=== PATIENT | female | born 1945 ===

== ENCOUNTER 2016-08-26 20:52 | Inpatient (IN) | payer MEDICARE, MEDICAID ==
[2016-08-26 21:01] VITALS: O2SAT 97
--- NOTE | 2016-08-26 21:34 | ED PDOC ---
HPI: Altered Mental Status Time Seen by Provider: 08/26/16 20:59 Chief Complaint (Nursing): Altered Mental Status Chief Complaint (Provider): Altered Mental Status/Dementia History Per: Patient, EMS, Family (daughter) History/Exam Limitations: Clinical Condition (dementia) Onset Of Symptoms: Cannot Confirm Onset (estimated to be approximately 5 days ago according to EMS) Current Symptoms Are (Timing): Still Present Description Of Symptoms: Not At Baseline (uncooperative and wandering, according to daughter) Severity: Moderate Associated Symptoms: Falling (s/p bruise to face and chin). denies: Fever, Vomiting, Diarrhea, Dyspnea, Other (nausea) Additional Complaint(s): Karissa Chen is a 71 year old female, accompanied to the ER by her daughter, with a past medical history of dementia, type II diabetes mellitus, and hypertension, who presents to the emergency department for the evaluation of altered mental status and dementia, that the patient has been experiencing for approximately 5 days according to the EMS. Patient presents to the emergency room with her daughter who states that she is uncooperative and wandering. Associated falling has recently been present, inclusive of superficial bruising to the patient's face and chin. Denies a fever, nausea, vomiting, diarrhea, or shortness of breath. Of note, HPI is limited due to patient's history of dementia. PMD: Billie Joy Past Medical History Reviewed: Historical Data, Nursing Documentation, Vital Signs Vital Signs: Last Vital Signs Temp 99.3 F 08/26/16 20:55 Pulse 92 H 08/26/16 20:55 Resp 18 08/26/16 20:55 BP 123/88 08/26/16 20:55 Pulse Ox 97 08/26/16 20:55 - Medical History PMH: Alzheimer's Disease, Dementia, Diabetes (type II), HTN Denies: Hepatitis, HIV, Kidney Stones, Chronic Kidney Disease, Seizures, Sexually Transmitted Disease - Surgical History Surgical History: No Surg Hx - Family History Family History: States: No Known Family Hx - Living Arrangements Living Arrangements: With Family (with daughter) - Social History Alcohol: None Drugs: Denies - Immunization History Hx Tetanus Toxoid Vaccination: No Hx Influenza Vaccination: No Hx Pneumococcal Vaccination: No - Home Medications Home Medications: Ambulatory Orders Medication Instructions Recorded Alendronate [Fosamax] 70 mg PO QWK@3530 #0 tab 09/24/15 Atorvastatin [Lipitor] 40 mg PO HS #0 tab 09/24/15 Carvedilol [Coreg] 12.5 mg PO BID #0 tab 09/24/15 Donepezil [Aricept] 5 mg PO DAILY #0 tab 09/24/15 Ergocalciferol [Drisdol 50,000 1 cap PO Q7D #0 cap 09/24/15 Intl Units Cap] Mirtazapine [Remeron] 7.5 mg PO HS #0 tab 09/24/15 QUEtiapine [SEROquel] 50 mg PO HS #0 tab 09/24/15 metFORMIN [glucOPHAGE] 500 mg PO DAILY #0 tab 09/24/15 - Allergies Allergies/Adverse Reactions: Allergies Allergy/AdvReac Type Severity Reaction Status Date / Time No Known Allergies Allergy Verified 08/27/16 03:00 Review of Systems Review Of Systems: ROS cannot be obtained secondary to pt's inabilty to answer questions. (ROS is limited due to patient's clinical condition of dementia) Constitutional: Negative for: Fever Respiratory: Negative for: Shortness of Breath Gastrointestinal: Negative for: Nausea, Vomiting, Diarrhea Musculoskeletal: Positive for: Other (chin pain s/p fall) Skin: Positive for: Bruising (to face s/p fall) Neurological: Positive for: Altered Mental Status (dementia) Physical Exam - Reviewed Nursing Documentation Reviewed: Yes Vital Signs Reviewed: Yes - Physical Exam Appears: Positive for: Non-toxic, No Acute Distress Head Exam: Positive for: NORMOCEPHALIC. Negative for: ATRAUMATIC (swelling and tenderness to submental region) Skin: Positive for: Normal Color, Warm, Dry Eye Exam: Positive for: Normal appearance, EOMI, PERRL, Other (L periorbital ecchymosis) Neck: Positive for: Normal, Painless ROM, Supple Cardiovascular/Chest: Positive for: Regular Rate, Rhythm. Negative for: Murmur Respiratory: Positive for: Normal Breath Sounds. Negative for: Respiratory Distress Gastrointestinal/Abdominal: Positive for: Normal Exam, Soft. Negative for: Tenderness Extremity: Positive for: Normal ROM. Negative for: Tenderness, Swelling Neurologic/Psych: Positive for: Alert, Other (appears internally preoccupied). Negative for: Oriented (only oriented to person) - Laboratory Results Result Diagrams: 08/26/16 21:28 08/26/16 21:28 - ECG O2 Sat by Pulse Oximetry: 97 (RA) Pulse Ox Interpretation: Normal Medical Decision Making Medical Decision Makin:59 Initial Impression: 71 year old female s/p fall and setting of known dementia. Initial Plan: * CT Cervical Spine w/o Contrast * CT Head w/o Contrast * CT Maxillofacial w/o Contrast * EKG * CBC * CMP * PT/PTT * Troponin I * Urinalysis * Accucheck * Crisis Evaluation 1210: Labs showed no clinically significant abnormalities. Patient was evaluated by crisis and will require psych admission for further treatment and stabilization of dementia with behavior disturbance. Condition is fair Patient is medically stable for psych admission. EXAM: CT Head Without Intravenous Contrast CLINICAL HISTORY: 71 years old, female; Injury or trauma; Fall; Initial encounter; Laceration; Consciousness not specified; Without residual foreign body; Face and head, generalized; Injury date: Today; Injury details: Alzheimer's. Dementia. Best exam; Additional info: Headache TECHNIQUE: Axial computed tomography images of the head/brain without intravenous contrast. This CT exam was performed using one or more of the following dose reduction techniques: automated exposure control, adjustment of the mA and/or kV according to patient size, and/or use of iterative reconstruction technique. Coronal and sagittal reformatted images were created and reviewed. COMPARISON: CT - HEAD W/O CONTRAST 09/17/2015 6:28:09 AM FINDINGS: Limitations: Motion artifact - mild. Brain: Kxus-[id number] atrophy. No definite intracranial hemorrhage. No mass. Multiple scattered foci of decreased attenuation within periventricular/subcortical white matter. No definite edema. Ventricles: No hydrocephalus. Bones/joints: No calvarial fracture. Vasculature: Mild atherosclerotic disease of intracranial arteries. Mastoid air cells: No mastoid effusion. IMPRESSION: 1. No definite intracranial hemorrhage. 2. Nonspecific white matter changes. 3. See facial bone CT report for additional details. 4. Incidental/non-acute findings are described above. EXAM: CT Cervical Spine Without Intravenous Contrast CLINICAL HISTORY: 71 years old, female; Injury or trauma; Fall; Initial encounter; Laceration; Without foreign body; Injury date: Today; Patient HX: Alzheimer's. Dementia. Best exam; Additional info: Neck injury TECHNIQUE: Axial computed tomography images of the cervical spine without intravenous contrast. This CT exam was performed using one or more of the following dose reduction techniques : automated exposure control, adjustment of the mA and/or kV according to patient size, and/ or use of iterative reconstruction technique. COMPARISON: No relevant prior studies available. FINDINGS: Vertebrae: No acute fracture. Mild facet osteoarthrosis. Discs/spinal canal/neural foramina: [id number] degenerative disc disease within lower cervical spine. No significant central canal stenosis. Mild neuroforaminal narrowing within lower cervical spine. Soft tissues: Unremarkable. Vasculature: Mild atherosclerotic disease of intracranial arteries. Thyroid: Several calcifications/calcified nodules within thyroid. Lung apices: RIGHT upper lobe calcified granuloma. Probable scarring. IMPRESSION: 1. No fracture. 2. Incidental/non-acute findings are described above. EXAM: CT Maxillofacial Without Intravenous Contrast CLINICAL HISTORY: 71 years old, female; Injury or trauma; Fall; Initial encounter; Laceration; Cheek bone and eyelid and head/scalp and forehead and nose and ocular (eye or eyeball) and orbit/ periorbital and maxilla and jaw; Loss of consciousness not known; Bilateral; Not specified; Without residual foreign body; Injury date: Today; Patient HX: Alzheimer's. Dementia. Best exam; Additional info: Facial trauma TECHNIQUE: Axial computed tomography images of the face without intravenous contrast. This CT exam was performed using one or more of the following dose reduction techniques: automated exposure control, adjustment of the mA and/or kV according to patient size, and/or use of iterative reconstruction technique. COMPARISON: CT - HEAD W/O CONTRAST 09/17/2015 6:28:09 AM FINDINGS: Bones/joints: No acute fracture. Soft tissues: Minimal facial soft tissue swelling. Probable few tiny calcifications about maxilla. Orbits: Unremarkable as visualized. Sinuses: Moderate mucosal thickening/fluid of LEFT maxillary sinus. IMPRESSION: 1. No fracture. 2. Sinus disease. 3. Incidental/non-acute findings are described above. 0113: CXR showed no acute disease. Scribe Attestation: Documented by Maximilian Luis, acting as a scribe for Efren Corey MD. Provider Scribe Attestation: All medical record entries made by the Scribe were at my direction and personally dictated by me. I have reviewed the chart and agree that the record accurately reflects my personal performance of the history, physical exam, medical decision making, and the department course for this patient. I have also personally directed, reviewed, and agree with the discharge instructions and disposition. Disposition - Clinical Impression Clinical Impression: Dementia without behavioral disturbance - Patient ED Disposition Is Patient to be Admitted: Yes - Disposition Disposition Time: 00:00 Condition: FAIR - Pt Status Changed To: Hospital Disposition Of: Inpatient - Admit Certification Admit to Inpatient:: After my assessment, the patient will require hospitalization for at least two midnights. This is because of the severity of symptoms shown, intensity of services needed, and/or the medical risk in this patient being treated as an outpatient.
[2016-08-26 22:09] LABS: BASO # 0.1 K/uL (0.0-0.2); BASO % 0.6 % (0.0-2.0); EOS % 0.1 % (0.0-4.0); HEMATOCRIT 45.3 % (34.0-47.0); LYMPH # 1.2 K/uL (1.0-4.3); MEAN CELL VOLUME 92.6 fl (81.0-99.0); MEAN CORPUSCULAR HEMOGLOBIN 30.7 pg (27.0-31.0); MEAN CORPUSCULAR HGB CONC 33.2 g/dL (33.0-37.0); MEAN PLATELET VOLUME 9.3 fl (7.2-11.7); MONO # 0.7 K/uL (0.0-0.8); MONO % 7.3 % (0.0-10.0); NEUT # 7.9 K/uL (1.8-7.0); RED CELL DISTRIBUTION WIDTH 13.4 % (11.5-14.5); WHITE BLOOD COUNT 9.8 K/uL (4.8-10.8)
[2016-08-26 22:35] LABS: ALB/GLOB RATIO 1.5 (1.0-2.1); ALKALINE PHOSPHATASE 85 U/L (38-126); ALT/SGPT 36 U/L (9-52); AST/SGOT 32 U/L (14-36); BLOOD UREA NITROGEN 21 mg/dl (7-17); CALCIUM 9.8 mg/dL (8.4-10.2); CARBON DIOXIDE 25 mmol/L (22-30); CHLORIDE 99 mmol/L (98-107); GFR AFRICAN-AMERICAN > 60; GLUCOSE,RANDOM 121 mg/dL (65-105); POTASSIUM 3.5 MMOL/L (3.6-5.0); SODIUM 139 mmol/l (132-148); TOTAL PROTEIN 8.3 G/DL (6.3-8.2)
[2016-08-26 22:48] LABS: PARTIAL THROMBOPLASTIN TIME 26.3 SECONDS (23.3-32.5)
--- NOTE | 2016-08-26 23:22 | CT ---
EXAM: CT Head Without Intravenous Contrast CLINICAL HISTORY: 71 years old, female; Injury or trauma; Fall; Initial encounter; Laceration; Consciousness not specified; Without residual foreign body; Face and head, generalized; Injury date: Today; Injury details: Alzheimer's. Dementia. Best exam; Additional info: Headache TECHNIQUE: Axial computed tomography images of the head/brain without intravenous contrast. This CT exam was performed using one or more of the following dose reduction techniques: automated exposure control, adjustment of the mA and/or kV according to patient size, and/or use of iterative reconstruction technique. Coronal and sagittal reformatted images were created and reviewed. COMPARISON: CT - HEAD W/O CONTRAST 09/17/2015 6:28:09 AM FINDINGS: Limitations: Motion artifact - mild. Brain: [id number]-[id number] atrophy. No definite intracranial hemorrhage. No mass. Multiple scattered foci of decreased attenuation within periventricular/subcortical white matter. No definite edema. Ventricles: No hydrocephalus. Bones/joints: No calvarial fracture. Vasculature: Mild atherosclerotic disease of intracranial arteries. Mastoid air cells: No mastoid effusion. IMPRESSION: 1. No definite intracranial hemorrhage. 2. Nonspecific white matter changes. 3. See facial bone CT report for additional details. 4. Incidental/non-acute findings are described above.
--- NOTE | 2016-08-26 23:27 | CT ---
EXAM: CT Maxillofacial Without Intravenous Contrast CLINICAL HISTORY: 71 years old, female; Injury or trauma; Fall; Initial encounter; Laceration; Cheek bone and eyelid and head/scalp and forehead and nose and ocular (eye or eyeball) and orbit/periorbital and maxilla and jaw; Loss of consciousness not known; Bilateral; Not specified; Without residual foreign body; Injury date: Today; Patient HX: Alzheimer's. Dementia. Best exam; Additional info: Facial trauma TECHNIQUE: Axial computed tomography images of the face without intravenous contrast. This CT exam was performed using one or more of the following dose reduction techniques: automated exposure control, adjustment of the mA and/or kV according to patient size, and/or use of iterative reconstruction technique. COMPARISON: CT - HEAD W/O CONTRAST 09/17/2015 6:28:09 AM FINDINGS: Bones/joints: No acute fracture. Soft tissues: Minimal facial soft tissue swelling. Probable few tiny calcifications about maxilla. Orbits: Unremarkable as visualized. Sinuses: Moderate mucosal thickening/fluid of LEFT maxillary sinus. IMPRESSION: 1. No fracture. 2. Sinus disease. 3. Incidental/non-acute findings are described above.
--- NOTE | 2016-08-26 23:30 | CT ---
EXAM: CT Cervical Spine Without Intravenous Contrast CLINICAL HISTORY: 71 years old, female; Injury or trauma; Fall; Initial encounter; Laceration; Without foreign body; Injury date: Today; Patient HX: Alzheimer's. Dementia. Best exam; Additional info: Neck injury TECHNIQUE: Axial computed tomography images of the cervical spine without intravenous contrast. This CT exam was performed using one or more of the following dose reduction techniques: automated exposure control, adjustment of the mA and/or kV according to patient size, and/or use of iterative reconstruction technique. COMPARISON: No relevant prior studies available. FINDINGS: Vertebrae: No acute fracture. Mild facet osteoarthrosis. Discs/spinal canal/neural foramina: [id number] degenerative disc disease within lower cervical spine. No significant central canal stenosis. Mild neuroforaminal narrowing within lower cervical spine. Soft tissues: Unremarkable. Vasculature: Mild atherosclerotic disease of intracranial arteries. Thyroid: Several calcifications/calcified nodules within thyroid. Lung apices: RIGHT upper lobe calcified granuloma. Probable scarring. IMPRESSION: 1. No fracture. 2. Incidental/non-acute findings are described above.
[2016-08-27] MEDS ORDERED: Bismuth Subsalicylate 262 mg/15 ml Sus (240 ml) PO PRN (01:25)
[2016-08-27] MEDS ORDERED: Alum-Mag Hydrox-Simethicone Susp (30 mL) PO PRN (01:25)
[2016-08-27] MEDS ORDERED: Magnesium Hydroxide Susp 30 ml UD PO PRN (01:25)
[2016-08-27] MEDS ORDERED: Ergocalciferol 50,000 Intl Units Cap PO SCH (05:45)
[2016-08-27] MEDS ORDERED: ALENDRONATE 70 MG TAB PO SCH (07:30)
[2016-08-27] MEDS: Insulin Lispro (humaLOG) 100 Units/ml Inj SC SCH ×5 (08:26→21:12)
--- NOTE | 2016-08-27 08:32 | RAD ---
HISTORY: admit COMPARISON: No prior. FINDINGS: LUNGS: Chronic interstitial changes. PLEURA: No significant pleural effusion identified, no pneumothorax apparent. CARDIOVASCULAR: Normal. OSSEOUS STRUCTURES: No significant abnormalities. VISUALIZED UPPER ABDOMEN: Normal. OTHER FINDINGS: None. IMPRESSION: Chronic interstitial changes.
[2016-08-27 09:14] LABS: IRON 71 ug/dL (37-170)
[2016-08-27 10:48] LABS: BLOOD UREA NITROGEN 22 mg/dl (7-17); CALCIUM 9.9 mg/dL (8.4-10.2); CARBON DIOXIDE 19 mmol/L (22-30); CHLORIDE 105 mmol/L (98-107); CHOLESTEROL 170 mg/dL (0-199); GFR AFRICAN-AMERICAN > 60; GLUCOSE,RANDOM 141 mg/dL (65-105); POTASSIUM 3.7 MMOL/L (3.6-5.0); SODIUM 139 mmol/l (132-148)
[2016-08-27 12:16] LABS: T4 11.1 ug/dl (5.5-11.0)
[2016-08-27 12:30] LABS: THYROID STIMULATING HORMONE 0.94 mIU/ML (0.46-4.68)
--- NOTE | 2016-08-27 15:41 | CP.PCM.HP ---
History of Present Illness - History of Present Illness History of Present Illness: History from the Chart and the Patient: CC: SIOBHAN Hitory of Present Illness: A 71 year old female, accompanied to the ER by her daughter, with a past medical history of dementia, type II diabetes mellitus, and hypertension, who presents to the emergency department for the evaluation of altered mental status and dementia, that the patient has been experiencing for approximately 5 days according to the EMS. Patient presents to the emergency room with her daughter who states that she is uncooperative and wandering. Associated falling has recently been present, inclusive of superficial bruising to the patient's face and chin. Denies a fever, nausea, vomiting, diarrhea, or shortness of breath. Of note, HPI is limited due to patient's history of dementia. Present on Admission - Present on Admission Any Indicators Present on Admission: No History of DVT/PE: No History of Uncontrolled Diabetes: Yes Urinary Catheter: No Decubitus Ulcer Present: No Review of Systems - Review of Systems All systems: reviewed and no additional remarkable complaints except - Psychiatric Psychiatric: As Per HPI Past Patient History - Infectious Disease Hx of Infectious Diseases: None - Tetanus Immunizations Tetanus Immunization: Unknown - Past Social History Smoking Status: Never Smoked Alcohol: None Drugs: Denies - CARDIAC Hx Hypertension: Yes - PULMONARY Hx Respiratory Disorders: Yes - NEUROLOGICAL Hx Alzheimer's Disease: Yes Hx Dementia: Yes Hx Seizures: No - HEENT Hx HEENT Problems: No - RENAL Hx Chronic Kidney Disease: No Hx Kidney Stones: No - ENDOCRINE/METABOLIC Hx Endocrine Disorders: Yes - HEMATOLOGICAL/ONCOLOGICAL Hx Human Immunodeficiency Virus (HIV): No - INTEGUMENTARY Hx Dermatological Problems: No - MUSCULOSKELETAL/RHEUMATOLOGICAL Hx Musculoskeletal Disorders: Yes - GASTROINTESTINAL Hx Gastrointestinal Disorders: No - GENITOURINARY/GYNECOLOGICAL Hx Sexually Transmitted Disorders: No - PSYCHIATRIC Hx Psychophysiologic Disorder: Yes - SURGICAL HISTORY Hx Surgeries: No Other/Comment: History obtained as per information from chart, patient unable to answer any questions appropriately at this time due to memory loss & sedated at the time of admission to the unit - ANESTHESIA Hx Anesthesia: Yes Hx Anesthesia Reactions: No Hx Malignant Hyperthermia: No Meds Allergies/Adverse Reactions: Allergies Allergy/AdvReac Type Severity Reaction Status Date / Time No Known Allergies Allergy Verified 08/27/16 03:00 Physical Exam - Constitutional Appears: Well, No Acute Distress - Head Exam Head Exam: ATRAUMATIC, NORMAL INSPECTION, NORMOCEPHALIC - Eye Exam Eye Exam: EOMI, Normal appearance, PERRL Pupil Exam: NORMAL ACCOMODATION, PERRL - ENT Exam ENT Exam: Mucous Membranes Dry, Normal Exam - Neck Exam Neck exam: Positive for: Full Rom, Normal Inspection - Respiratory Exam Respiratory Exam: Clear to Auscultation Bilateral, NORMAL BREATHING PATTERN - Cardiovascular Exam Cardiovascular Exam: REGULAR RHYTHM, +S1, +S2 - GI/Abdominal Exam GI & Abdominal Exam: Normal Bowel Sounds, Soft. absent: Tenderness - Extremities Exam Extremities exam: Positive for: full ROM, normal capillary refill, normal inspection. Negative for: calf tenderness - Back Exam Back exam: NORMAL INSPECTION. absent: CVA tenderness (L), CVA tenderness (R) - Neurological Exam Neurological exam: Alert, CN II-XII Intact, Reflexes Normal - Psychiatric Exam Psychiatric exam: Normal Affect, Normal Mood - Skin Skin Exam: Dry, Intact, Normal Color, Warm Results - Vital Signs Recent Vital Signs: Last Vital Signs Temp 97.6 F 08/27/16 06:00 Pulse 73 08/27/16 08:23 Resp 19 08/27/16 06:00 BP 138/77 08/27/16 08:23 Pulse Ox 97 08/27/16 06:39 - Labs Result Diagrams: 08/26/16 21:28 08/27/16 09:15 Labs: Laboratory Results - last 24 hr 08/27/16 08/27/16 08/27/16 05:55 08:00 08:00 Sodium Potassium Chloride Carbon Dioxide Anion Gap BUN Creatinine Est GFR ( Amer) Est GFR (Non-Af Amer) POC Glucose (mg/dL) 147 H Random Glucose Calcium Iron 71 TIBC 263 % Saturation 27 Ferritin Triglycerides Cholesterol LDL Cholesterol Direct HDL Cholesterol Vitamin B12 Free T4 2.24 H Thyroxine (T4) TSH 3rd Generation 08/27/16 08/27/16 08/27/16 09:15 11:14 15:21 Sodium 139 Potassium 3.7 Chloride 105 Carbon Dioxide 19 L Anion Gap 19 BUN 22 H Creatinine 0.7 Est GFR ( Amer) > 60 Est GFR (Non-Af Amer) > 60 POC Glucose (mg/dL) 117 H 156 H Random Glucose 141 H Calcium 9.9 Iron TIBC % Saturation Ferritin 235.0 Triglycerides 74 D Cholesterol 170 LDL Cholesterol Direct 64 HDL Cholesterol 62 Vitamin B12 717 Free T4 Thyroxine (T4) 11.1 H TSH 3rd Generation 0.94 - Imaging and Cardiology CT scan - head Status: Report reviewed by me Additional comment: No Acute finding CT C-spine: Status: Report reviewed by me Additional comment: No Fracture Maxillo facial CT: Status: Report reviewed by me Additional comment: IMPRESSION: 1. No fracture. 2. Sinus disease. 3. Incidental/non-acute findings are described above. Chest x-ray Status: Report reviewed by me Additional comment: Chronic Interstitial Changes Assessment & Plan (1) Hyperthyroidism, subclinical Assessment and Plan: Repeat Thyroid Panel in 3 days Status: Acute Priority: Low (2) Dementia with psychosis Status: Acute (3) HTN (hypertension) Assessment and Plan: Continue Carvidelol Status: Chronic (4) DM2 (diabetes mellitus, type 2) Assessment and Plan: Metformin Accucheck with Coverage Status: Chronic
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
[2016-08-27 18:51] LABS: FOLATE 13.6 ng/mL
[2016-08-28 06:47] LABS: RBC URINE 5 /hpf (0-3); URINE BILIRUBIN NEGATIVE (NEGATIVE); URINE BLOOD NEGATIVE (NEGATIVE); URINE COLOR YELLOW (YELLOW); URINE GLUCOSE (UA) NEG (Normal); URINE KETONE NEGATIVE (NEGATIVE); URINE LEUKOCYTE ESTERASE NEG Leu/uL (Negative); URINE PROTEIN NEGATIVE (NEGATIVE); WBC URINE 2 /hpf (0-5)
[2016-08-28] MEDS: Insulin Lispro (humaLOG) 100 Units/ml Inj SC SCH ×4 (08:06→16:19)
--- NOTE | 2016-08-28 08:50 | CARD ---
APPROVED REPORT EKG Measurement Heart [id number] <Conclusion> Normal sinus rhythm Possible inferior infarct, age undetermined Abnormal ECG
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
--- NOTE | 2016-08-28 21:22 | CP.PCM.PN ---
Subjective - Date & Time of Evaluation Date of Evaluation: 08/28/16 Time of Evaluation: 17:45 - Subjective Subjective: Sates feeling better. The facial bruise is improving Objective - Vital Signs/Intake and Output Vital Signs (last 24 hours): Temp Pulse Resp BP Pulse Ox 97.1 F L 68 19 128/75 97 08/28/16 16:56 08/28/16 16:56 08/28/16 16:56 08/28/16 16:56 08/27/16 06:39 - Medications Medications: Current Medications Acetaminophen (Tylenol 325mg Tab) 650 mg PO Q4 PRN PRN Reason: Pain, moderate (4-7) Al Hydrox/Mg Hydrox/Simethicone (Maalox Plus 30 Ml) 30 ml PO Q4 PRN PRN Reason: Dyspepsia Alendronate Sodium (Fosamax) 70 mg PO QWK@0730 [facility] Last Admin: 08/27/16 08:25 Dose: 70 mg Atorvastatin Calcium (Lipitor) 40 mg PO HS [facility] Last Admin: 08/28/16 21:02 Dose: 40 mg Bismuth Subsalicylate (Pepto-Bismol) 524 mg PO Q4 PRN PRN Reason: Diarrhea Carvedilol (Coreg) 12.5 mg PO BID [facility] Last Admin: 08/28/16 16:27 Dose: 12.5 mg Donepezil HCl (Aricept) 5 mg PO DAILY [facility] Last Admin: 08/28/16 13:09 Dose: 5 mg Ergocalciferol (Drisdol 50,000 Intl Units Cap) 1 cap PO Q7D [facility] Last Admin: 08/27/16 08:24 Dose: 1 cap Insulin Human Lispro (Humalog) 0 units SC ACHS [facility] PRN Reason: Protocol Last Admin: 08/28/16 16:19 Dose: Not Given Lorazepam (Ativan) 0.5 mg PO HS PRN PRN Reason: Insomnia Stop: 09/10/16 01:26 Lorazepam (Ativan) 0.5 mg PO Q6 PRN PRN Reason: Anixety/Agitation Stop: 09/10/16 01:26 Last Admin: 08/27/16 09:34 Dose: 0.5 mg Magnesium Hydroxide (Milk Of Magnesia) 30 ml PO HS PRN PRN Reason: Constipation Metformin HCl (Glucophage) 500 mg PO DAILY [facility] Last Admin: 08/28/16 08:59 Dose: 500 mg Mirtazapine (Remeron) 7.5 mg PO [facility] Last Admin: 08/28/16 21:02 Dose: 7.5 mg Quetiapine Fumarate (Seroquel) 50 mg PO [facility] Last Admin: 08/28/16 21:02 Dose: 50 mg - Labs Labs: 08/27/16 09:15 PT 10.7 SECONDS (9.6-11.2) 08/26/16 21:28 INR 1.03 (0.92-1.08) 08/26/16 21:28 APTT 26.3 SECONDS (23.3-32.5) 08/26/16 21:28 - Constitutional Appears: Well, No Acute Distress - Head Exam Head Exam: NORMOCEPHALIC Additional comments: Bruises to the Chin Area - Eye Exam Eye Exam: EOMI, Normal appearance, PERRL Pupil Exam: NORMAL ACCOMODATION, PERRL - ENT Exam ENT Exam: Mucous Membranes Moist, Normal Exam - Neck Exam Neck Exam: Full ROM, Normal Inspection. absent: Lymphadenopathy - Respiratory Exam Respiratory Exam: Clear to Ausculation Bilateral, NORMAL BREATHING PATTERN - Cardiovascular Exam Cardiovascular Exam: REGULAR RHYTHM, +S1, +S2. absent: Murmur - GI/Abdominal Exam GI & Abdominal Exam: Soft, Normal Bowel Sounds. absent: Tenderness - Extremities Exam Extremities Exam: Full ROM, Normal Capillary Refill, Normal Inspection. absent : Joint Swelling, Pedal Edema - Back Exam Back Exam: Full ROM, NORMAL INSPECTION. absent: CVA tenderness (L), CVA tenderness (R) - Neurological Exam Neurological Exam: Abnormal Gait, Altered, Awake, CN II-XII Intact - Psychiatric Exam Psychiatric exam: Agitated - Skin Skin Exam: Dry, Intact, Normal Color, Warm Assessment and Plan (1) Dementia with psychosis Assessment & Plan: Treat as per Psych Recommendations TSH/Vitamin B12/RPR Status: Acute (2) HTN (hypertension) Assessment & Plan: Normotensve without medicine Low salt Diet Status: Chronic (3) DM2 (diabetes mellitus, type 2) Assessment & Plan: Continue Metformin Status: Chronic (4) Hyperthyroidism, subclinical Assessment & Plan: Repeat Thyroid Panel Status: Acute
[2016-08-29 08:33] LABS: THYROID STIMULATING HORMONE 0.86 mIU/ML (0.46-4.68)
[2016-08-29] MEDS: Insulin Lispro (humaLOG) 100 Units/ml Inj SC SCH ×3 (08:45→17:01)
--- NOTE | 2016-08-29 09:58 | PCM.PYCHPN ---
Psychiatric Progress Note - Psychiatric Progress Note Patient seen today, length of contact: Patient evaluated, case discussed with team, chart reviewed Patient Chief Complaint: "I'm good" Problems Identified/Issues Discussed: Patient is calm/pleasant/no behavioral problems on the unit. A + O x 1, which seems to be her baseline due to her dementia. [employer] and SW still awaiting a return phone call from the patient's daughter. Patient is a poor historian and unable to provide any history. She denies current mood symptoms or psychotic symptoms. Medication Change: No Medical Record Reviewed: Yes Mental Status Examination - Cognitive Function Orientation: Person Memory: Impaired Attention: Poor Concentration: Poor Association: Loose Fund of Knowledge: Poor Decription of patient's judgement and insights: Poor I/J due to dementia - Mood Mood: Neutral - Affect Affect: Broad - Speech Speech: Soft - Formal Thought Process Formal Thought Process: Loosening of associations Psychotic Thoughts and Behaviors: No AH/VH/paranoia/delusions - Suicidal Ideation Suicidal Ideation: No - Homicidal Ideation Homicidal Ideation: No Goal/Treatment Plan - Goal/Treatment Plan Need for Continued Stay: Remain at risks for inpatient hospitalization, Discharge may exacerbated symptoms, Severe functional impairment Progress Toward Problem(s) and Goals/Treatment Plan: 71 yo female w/ dementia w/ behavioral disturbances, currently calm on the unit , but needs continued monitoring for treatment and safety. -SW to call APS -Medicine consult -Individual and group therapy -Obtain collateral history; daughter has not returned phone calls from staff and MD -Continue Seroquel 50 mg PO HS, Remeron 7.5 mg PO HS -Disposition planning - Smoking Cessation Smoking Cessation Initiated: No Reason for not providing: Not indicated
[2016-08-29 17:08] LABS: FT3 3.51 pg/mL (2.77-5.27)
[2016-08-29] MEDS: Nystatin Ointment TOP SCH (21:13)
[2016-08-30] MEDS: Insulin Lispro (humaLOG) 100 Units/ml Inj SC SCH ×4 (08:20→21:14)
[2016-08-30] MEDS: Nystatin Ointment TOP SCH ×2 (08:23→16:30)
--- NOTE | 2016-08-30 09:31 | PCM.PYCHPN ---
Psychiatric Progress Note - Psychiatric Progress Note Patient seen today, length of contact: Patient evaluated, case discussed with team, chart reviewed Patient Chief Complaint: "I'm good" Problems Identified/Issues Discussed: Patient is calm/pleasant/no behavioral problems on the unit. A + O x 1, which seems to be her baseline due to her dementia. She denies current mood symptoms or psychotic symptoms. Medication Change: No Medical Record Reviewed: Yes Mental Status Examination - Cognitive Function Orientation: Person Memory: Impaired Attention: Poor Concentration: Poor Association: Loose Fund of Knowledge: Poor Decription of patient's judgement and insights: Poor I/J due to dementia - Mood Mood: Neutral - Affect Affect: Broad - Speech Speech: Soft - Formal Thought Process Formal Thought Process: Loosening of associations Psychotic Thoughts and Behaviors: No AH/VH/paranoia/delusions - Suicidal Ideation Suicidal Ideation: No - Homicidal Ideation Homicidal Ideation: No Goal/Treatment Plan - Goal/Treatment Plan Progress Toward Problem(s) and Goals/Treatment Plan: 71 yo female w/ dementia w/ behavioral disturbances, currently calm and psychiatrically stable for referral to subacute rehab for continued physical therapy. -SW was able to finally get in touch with the patient's daughter (daughter did not return calls for several days) and confirm her living situation and status -Patient to be referred for subacute rehab. -Individual and group therapy -Continue Seroquel 50 mg PO HS, Remeron 7.5 mg PO HS -Disposition planning Estimated Date of D/C: 08/31/16 - Smoking Cessation Smoking Cessation Initiated: No Reason for not providing: Not indicated
--- NOTE | 2016-08-30 11:00 | CP.PCM.PN ---
Subjective - Date & Time of Evaluation Date of Evaluation: 08/29/16 Time of Evaluation: 19:25 Objective - Vital Signs/Intake and Output Vital Signs (last 24 hours): Temp Pulse Resp BP Pulse Ox 97 F L 66 19 159/86 H 97 08/30/16 05:57 08/30/16 08:23 08/30/16 05:57 08/30/16 08:23 08/27/16 06:39 - Medications Medications: Current Medications Acetaminophen (Tylenol 325mg Tab) 650 mg PO Q4 PRN PRN Reason: Pain, moderate (4-7) Last Admin: 08/29/16 15:25 Dose: 650 mg Al Hydrox/Mg Hydrox/Simethicone (Maalox Plus 30 Ml) 30 ml PO Q4 PRN PRN Reason: Dyspepsia Alendronate Sodium (Fosamax) 70 mg PO QWK@0730 [facility] Last Admin: 08/27/16 08:25 Dose: 70 mg Amlodipine Besylate (Norvasc) 5 mg PO DAILY [facility] Last Admin: 08/30/16 08:23 Dose: 5 mg Atorvastatin Calcium (Lipitor) 40 mg PO HS [facility] Last Admin: 08/29/16 20:59 Dose: 40 mg Bismuth Subsalicylate (Pepto-Bismol) 524 mg PO Q4 PRN PRN Reason: Diarrhea Carvedilol (Coreg) 12.5 mg PO BID [facility] Last Admin: 08/30/16 08:19 Dose: 12.5 mg Donepezil HCl (Aricept) 5 mg PO DAILY [facility] Last Admin: 08/30/16 08:18 Dose: 5 mg Ergocalciferol (Drisdol 50,000 Intl Units Cap) 1 cap PO Q7D [facility] Last Admin: 08/27/16 08:24 Dose: 1 cap Insulin Human Lispro (Humalog) 0 units SC ACHS [facility] PRN Reason: Protocol Last Admin: 08/30/16 08:20 Dose: Not Given Lorazepam (Ativan) 0.5 mg PO HS PRN PRN Reason: Insomnia Stop: 09/10/16 01:26 Lorazepam (Ativan) 0.5 mg PO Q6 PRN PRN Reason: Anixety/Agitation Stop: 09/10/16 01:26 Last Admin: 08/29/16 17:03 Dose: 0.5 mg Magnesium Hydroxide (Milk Of Magnesia) 30 ml PO HS PRN PRN Reason: Constipation Metformin HCl (Glucophage) 500 mg PO DAILY [facility] Last Admin: 08/30/16 08:19 Dose: 500 mg Mirtazapine (Remeron) 7.5 mg PO HS [facility] Last Admin: 08/29/16 20:59 Dose: 7.5 mg Nystatin (Mycostatin Oint) 1 applic TOP BID [facility] Last Admin: 08/30/16 08:23 Dose: 1 applic Quetiapine Fumarate (Seroquel) 50 mg PO HS [facility] Last Admin: 08/29/16 20:59 Dose: 50 mg Triamcinolone Acetonide (Kenalog 0.1% Oint) 1 appl TOP DAILY [facility] Last Admin: 08/30/16 08:21 Dose: 1 appl - Labs Labs: 08/27/16 09:15 PT 10.7 SECONDS (9.6-11.2) 08/26/16 21:28 INR 1.03 (0.92-1.08) 08/26/16 21:28 APTT 26.3 SECONDS (23.3-32.5) 08/26/16 21:28 Assessment and Plan (1) Dementia with psychosis Status: Acute (2) HTN (hypertension) Status: Chronic (3) DM2 (diabetes mellitus, type 2) Status: Chronic (4) Hyperthyroidism, subclinical Status: Acute
[2016-08-30 16:07] VITALS: RESP 20
--- NOTE | 2016-08-30 23:10 | CP.PCM.PN ---
Subjective - Date & Time of Evaluation Date of Evaluation: 08/30/16 Time of Evaluation: 09:35 Objective - Vital Signs/Intake and Output Vital Signs (last 24 hours): Temp Pulse Resp BP Pulse Ox 97.8 F 73 20 130/75 97 08/30/16 16:06 08/30/16 16:28 08/30/16 16:06 08/30/16 16:28 08/27/16 06:39 - Medications Medications: Current Medications Acetaminophen (Tylenol 325mg Tab) 650 mg PO Q4 PRN PRN Reason: Pain, moderate (4-7) Last Admin: 08/30/16 22:55 Dose: 650 mg Al Hydrox/Mg Hydrox/Simethicone (Maalox Plus 30 Ml) 30 ml PO Q4 PRN PRN Reason: Dyspepsia Alendronate Sodium (Fosamax) 70 mg PO QWK@0730 [facility] Last Admin: 08/27/16 08:25 Dose: 70 mg Amlodipine Besylate (Norvasc) 5 mg PO DAILY [facility] Last Admin: 08/30/16 08:23 Dose: 5 mg Atorvastatin Calcium (Lipitor) 40 mg PO HS [facility] Last Admin: 08/30/16 21:16 Dose: 40 mg Bismuth Subsalicylate (Pepto-Bismol) 524 mg PO Q4 PRN PRN Reason: Diarrhea Carvedilol (Coreg) 12.5 mg PO BID [facility] Last Admin: 08/30/16 16:28 Dose: 12.5 mg Donepezil HCl (Aricept) 5 mg PO DAILY [facility] Last Admin: 08/30/16 08:18 Dose: 5 mg Ergocalciferol (Drisdol 50,000 Intl Units Cap) 1 cap PO Q7D [facility] Last Admin: 08/27/16 08:24 Dose: 1 cap Insulin Human Lispro (Humalog) 0 units SC ACHS [facility] PRN Reason: Protocol Last Admin: 08/30/16 21:14 Dose: Not Given Lorazepam (Ativan) 0.5 mg PO HS PRN PRN Reason: Insomnia Stop: 09/10/16 01:26 Lorazepam (Ativan) 0.5 mg PO Q6 PRN PRN Reason: Anixety/Agitation Stop: 09/10/16 01:26 Last Admin: 08/29/16 17:03 Dose: 0.5 mg Magnesium Hydroxide (Milk Of Magnesia) 30 ml PO HS PRN PRN Reason: Constipation Metformin HCl (Glucophage) 500 mg PO DAILY [facility] Last Admin: 08/30/16 08:19 Dose: 500 mg Mirtazapine (Remeron) 7.5 mg PO HS [facility] Last Admin: 08/30/16 21:15 Dose: 7.5 mg Nystatin (Mycostatin Oint) 1 applic TOP BID [facility] Last Admin: 08/30/16 16:30 Dose: 1 applic Quetiapine Fumarate (Seroquel) 50 mg PO HS [facility] Last Admin: 08/30/16 21:16 Dose: 50 mg Triamcinolone Acetonide (Kenalog 0.1% Oint) 1 appl TOP DAILY [facility] Last Admin: 08/30/16 08:21 Dose: 1 appl - Labs Labs: 08/27/16 09:15 PT 10.7 SECONDS (9.6-11.2) 08/26/16 21:28 INR 1.03 (0.92-1.08) 08/26/16 21:28 APTT 26.3 SECONDS (23.3-32.5) 08/26/16 21:28 Assessment and Plan (1) Dementia with psychosis Status: Acute (2) HTN (hypertension) Status: Chronic (3) DM2 (diabetes mellitus, type 2) Status: Chronic (4) Hyperthyroidism, subclinical Status: Acute
[2016-08-31] MEDS: Insulin Lispro (humaLOG) 100 Units/ml Inj SC SCH ×4 (06:30→22:01)
[2016-08-31] MEDS ORDERED: Insulin Lispro (humaLOG) 100 Units/ml Inj SC ONE (07:00)
[2016-08-31] MEDS ORDERED: ALENDRONATE 70 MG TAB PO ONE (09:00)
[2016-08-31] MEDS: Nystatin Ointment TOP SCH ×2 (09:00→17:00)
[2016-08-31] MEDS ORDERED: Nystatin Ointment TOP ONE (09:00)
[2016-08-31] MEDS ORDERED: Ergocalciferol 50,000 Intl Units Cap PO ONE (09:00)
[2016-09-01 05:57] VITALS: TEMP 97.3
--- NOTE | 2016-09-01 09:30 | PCM.PYCHPN ---
Psychiatric Progress Note - Psychiatric Progress Note Patient seen today, length of contact: Patient evaluated, case discussed with team, chart reviewed Patient Chief Complaint: "I'm good" Problems Identified/Issues Discussed: Note from 08/31/16 written in paper chart because EMR was down. Patient is calm/pleasant/no behavioral problems on the unit. A + O x 1, which seems to be her baseline due to her dementia. She denies current mood symptoms or psychotic symptoms. Medication Change: No Medical Record Reviewed: Yes Mental Status Examination - Cognitive Function Orientation: Person Memory: Impaired Attention: Poor Concentration: Poor Association: Loose Fund of Knowledge: Poor Decription of patient's judgement and insights: Poor I/J due to dementia - Mood Mood: Neutral - Affect Affect: Broad - Speech Speech: Soft - Formal Thought Process Formal Thought Process: Loosening of associations Psychotic Thoughts and Behaviors: No AH/VH/paranoia/delusions - Suicidal Ideation Suicidal Ideation: No - Homicidal Ideation Homicidal Ideation: No Goal/Treatment Plan - Goal/Treatment Plan Progress Toward Problem(s) and Goals/Treatment Plan: 71 yo female w/ dementia w/ behavioral disturbances, currently calm and psychiatrically stable for referral to subacute rehab for continued physical therapy. -Patient to be referred for subacute rehab, awaiting placement -Individual and group therapy -Continue Seroquel 50 mg PO HS, Remeron 7.5 mg PO HS -Disposition planning
[2016-09-01] MEDS: Nystatin Ointment TOP SCH ×2 (09:33→16:27)
[2016-09-01] MEDS: Insulin Lispro (humaLOG) 100 Units/ml Inj SC SCH ×3 (09:33→16:25)
--- NOTE | 2016-09-01 10:38 | PN ---
DATE: 09/01/2016 The patient seen and examined. The patient is seen for Dr. Barrow while he is away. The patient sophie ins in geropsych unit. Denies any specific complaints. No chest pain, no shortness of breath, no s pecific issues reported by nursing staff. PHYSICAL EXAMINATION: GENERAL: The patient is in no acute distress. VITAL SIGNS: Stable. HEART: S1, S2 normal, regular. LUNGS: Good bilateral air entry. ABDOMEN: Soft, nontender. EXTREMITIES: No calf swelling, no tenderness, no acute ischemia. CENTRAL NERVOUS SYSTEM: Essentially unchanged. DIAGNOSTIC DATA: Available diagnostic data reviewed. Overall, patient's general medical condition is stable. PLAN: As ordered. Psychiatric followup and intervention noted and appreciated. Jason Dubon MD cc: [id number] TT: 09/01/2016 10:37:38 Confirmation # [id number] Dictation # [id number] mary lou
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
[2016-09-01 16:29] VITALS: BP 124/69; PULSE 74
== END 2016-09-01 16:40 | DRG 57 ==
LOC: H.ER 20:52 → H.ERHOLD 23:59 → H.STEP 08-27 01:00
PROVIDERS: ADMIT Psychiatry & Neurology Psychiatry; ATTEND Psychiatry & Neurology Psychiatry
PROC: GZHZZZZ Group Psychotherapy (ICD-10-PCS; principal; 2016-08-26)
DX: G30.9 Alzheimer's disease, unspecified (principal); F02.81 Dementia in other diseases classified elsewhere, unspecified severity, with behavioral disturbance; E11.9 Type 2 diabetes mellitus without complications; I10 Essential (primary) hypertension